=== PATIENT | male | born 1970 | race Caucasian/White ===

== ENCOUNTER 2017-09-07 18:12 | Outpatient (CLI) | payer OTHER ==
[~2017-09-07 18:12] MED LIST: CATAFLAM50 MG PO; FLONASE16 GM NS; GILTUSS TR TAB1 EACH PO; ZYRTEC10 MG PO
== END 2017-09-07 18:20 | disposition home or self-care (01) ==
LOC: RAD 18:12
DX: S22.43XA Multiple fractures of ribs, bilateral, initial encounter for closed fracture (principal)